=== PATIENT | male | born 1980 | race African-American/Black ===

== ENCOUNTER → 2017-06-07 | Outpatient (CLI) | payer OTHER ==
[~2017-06-07] MED LIST: GLIPIZIDE ER2.5 MG PO; LOVASTATIN 20 M20 MG PO; METFORMIN HCL500 MG PO; NAPROSYN500 MG PO; NORCO 5-325 TA1 EACH PO; ZESTORETIC 20-1 EAC1 PO
--- NOTE | ~2017-06-07 | EKG ---
[address] [address] ELECTROCARDIOGRAM REPORT Name: UCHE SOUZA Room #: [facility] Grayson#: [id number] Admission: 06/07/17 Attend Phys: Kallie Joshi MD Discharge: Date of : 78 Report #: [id number] THIS REPORT FOR: //name// [facility] Test Date: 2017-06-07 Test Time: 14:40:11 Pat Name: UCHE SOUZA Department: Room: Gender: [employer]: Arsh HERNÁNDEZ : 1980 Requested By: Kallie Joshi Order Number: [id number] MD: Tomasz Cunningham Measurements Intervals [place] Rate: 103 P: 86 MD: 173 QRS: 20 QRSD: 110 T: -49 QT: 358 QTc: 469 Interpretive Statements Sinus tachycardia Borderline repolarization abnormality No previous ECG available for comparison Electronically Signed On 06-07-2017 16:36:48 CDT by Tomasz Cunningham [email or web address] <ELECTRONICALLY SIGNED> By: Tomasz Cunningham MD 06/07/17 1636 1440 1440 MD LUPE Haney
== END ==
LOC: CV 14:01
DX: E11.9 Type 2 diabetes mellitus without complications (principal)